=== PATIENT | female | born 1990 | race Caucasian/White ===

== ENCOUNTER 2017-11-27 18:14 | Emergency (ER) | payer OTHER ==
[~2017-11-27] VITALS: Ht 167.6 cm; Wt 70.8 kg
[2017-11-27 18:18] VITALS: BP 137/85
--- NOTE | 2017-11-27 18:22 | NUR ---
PT AMBULATED TO ER BED 03
--- NOTE | 2017-11-27 18:22 | NUR ---
REPORT GIVEN TO [facility].
[2017-11-27] MEDS ORDERED: IBUPROFEN 600 MG TAB PO ONE (18:35)
[2017-11-27] MEDS ORDERED: HYDROcodone/APAP 5/325 MG 1 TAB TAB PO ONE (18:35)
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
--- NOTE | 2017-11-27 18:51 | NUR ---
MEDICATED ORDERED, AT BEDSIDE. URINE PREG-NEG
--- NOTE | 2017-11-27 19:00 | NUR ---
pt to xray
[2017-11-27 19:39] VITALS: BP 132/85
--- NOTE | 2017-11-27 19:39 | NUR ---
Patient discharged with v/s stable. Written and verbal after care instructions given and explained. Patient alert, oriented and verbalized understanding of instructions. Ambulatory with steady gait. All questions addressed prior to discharge. ID band removed. Patient advised to follow up with PMD. Rx of KETOROLAC given. Patient educated on indication of medication including possible reaction and side effects. Opportunity to ask questions provided and answered.
== END 2017-11-27 19:39 | disposition home or self-care (01) ==
LOC: MED 18:14
DX: S39.012A Strain of muscle, fascia and tendon of lower back, initial encounter (principal); S16.1XXA Strain of muscle, fascia and tendon at neck level, initial encounter; V49.49XA Driver injured in collision with other motor vehicles in traffic accident, initial encounter; Y93.89 Activity, other specified; Y99.8 Other external cause status; Y92.410 Unspecified street and highway as the place of occurrence of the external cause
CPT/HCPCS: 71046; 72040; 72100; 81025; 99284